=== PATIENT | male | born 1955 | race Caucasian/White ===

== ENCOUNTER → 2017-04-05 | Day surgery (SDC) | payer OTHER ==
[~2017-04-05] MED LIST: ALPR.5 PO; BUPIVACAINE HCL PF 0.75% 30 ML VIAL ONE; LEXA10TA PO; LIPI20TA PO; MONT10TA2 PO; MULTTAB67 PO; PROPOFOL 200 MG/20 ML AMP IV ONE; TRIAMCINOLONE ACETONIDE 40 MG/ML VIAL I-ARTICULR ONE; TRIL135C PO
--- NOTE | 2017-04-07 08:02 | M6 ---
cc: ALYSSIA GARCIA M.D. DATE: 04/05/2017 DATE OF : 1955 PROCEDURE Fluoroscopically guided injection bilateral lumbar facet joints (bilateral L3-4, L4-5 and L5-S1 facet joints). History and physical was completed and signed. Consent was signed. Procedure site was marked. Medications were listed and reconciled. Pain score was recorded. Allergies were noted. Time out was taken. Fluoroscopy time was recorded where applicable. Sedation was administered or directed by Dr. Garcia. The patient was given oxygen. The patient was monitored by a registered nurse. Total procedure time was greater than 15 minutes. PROCEDURE NOTE: IV was started, blood pressure cuff, pulse oximeter and EKG were applied. The patient was placed in the prone position on a Delfin table sedated with small amounts of propofol titrated to effect. Vital signs were monitored and remained stable throughout the procedure. The lumbar area was prepped with alcohol and 10% Betadine solution and draped with sterile drapes. Fluoroscopy was used in a Ganesh dog view to clearly visualize the bilateral lumbar facet joints at L3-4, L4-5 and L5-S1. Separate sterile 3-1/2 inch 25-gauge spinal needles were advanced into these joints under fluoroscopic guidance. There was negative aspiration for blood or any other type of fluid and at each location the patient was given 1 mL of Marcaine 0.75% which contained 10 mg of Kenalog. Following the procedure the patient was taken to the recovery room with stable vital signs neurologically intact. He will be evaluated immediately and with followup to determine if he has a subjective decrease in his usual pain and a corresponding objective increase his functional capabilities. WMD LINDA Foss/MARY /9:17 AM /8:03 AM
== END | disposition home or self-care (01) ==
LOC: PHSDC 07:29
PROVIDERS: ATTEND Pain Medicine Interventional Pain Medicine
DX: M54.5 Low back pain (principal)
CPT/HCPCS: 64493; 64494; 64495; 99152; J3301

== ENCOUNTER → 2017-04-26 | Day surgery (SDC) | payer OTHER ==
[~2017-04-26] MED LIST changes: +BUPIVACAINE HCL PF 0.5% 30 ML VIAL ONE; -BUPIVACAINE HCL PF 0.75% 30 ML VIAL ONE; +HYDR-3583 PO; +IBUP400T20 PO; +methylPREDNISolone ACETATE 40 MG/ML VIAL I-ARTICULR ONE
--- NOTE | 2017-04-30 23:07 | M6 ---
cc: ALYSSIA GARCIA M.D. DATE: 04/26/2017 DATE OF : 1955 PROCEDURE Fluoroscopically guided injection right sacroiliac joint. History and physical was completed and signed. Consent was signed. Procedure site was marked. Medications were listed and reconciled. Pain score was recorded. Allergies were noted. Time out was taken. Fluoroscopy time was recorded where applicable. Sedation was administered or directed by Dr. Garcia. The patient was given oxygen. The patient was monitored by a registered nurse. Total procedure time was greater than 15 minutes. PROCEDURE NOTE: IV was started, blood pressure cuff, pulse oximeter and EKG were applied. The patient was placed in the prone position on a Delfin table sedated with small amounts of propofol titrated to effect. Vital signs were monitored and remained stable throughout the procedure. Sacral area was prepped with alcohol and 10% Betadine solution and draped with sterile drapes. Fluoroscopy was used shooting from medial to lateral to clearly visualize the posterior joint line of the right sacroiliac joint. A sterile 5-inch 22-gauge spinal needle was advanced into the joint under fluoroscopic guidance. There was negative aspiration for blood or any other type of fluid and the patient was given 2 mL of 0.5% Marcaine 20 mg of Depo-Medrol, 20 mg of Kenalog. Following the procedure the patient was taken to the recovery room with stable vital signs neurologically intact. He will be evaluated immediately and with followup to determine if he has a subjective decrease in his usual pain and a corresponding objective increase his functional capabilities. W. MD LINDA Abdul/MARY /9:25 AM /11:09 PM
== END | disposition home or self-care (01) ==
LOC: PHSDC 08:26
PROVIDERS: ATTEND Pain Medicine Interventional Pain Medicine
DX: M54.5 Low back pain (principal)
CPT/HCPCS: 27096; 99152; J1030; J3301; G0260

== ENCOUNTER → 2017-05-16 | Day surgery (SDC) | payer OTHER ==
[~2017-05-16] MED LIST changes: -BUPIVACAINE HCL PF 0.5% 30 ML VIAL ONE; +BUPIVACAINE HCL PF 0.75% 30 ML VIAL ONE; +DIOV80TA4 PO; +IOHEXOL 180 MG/ML 20 ML VIAL (for RAD DIAG) EPIDURAL ONE; +LIDOCAINE HCL 1% 30 ML VIAL INFIL ONE; -TRIAMCINOLONE ACETONIDE 40 MG/ML VIAL I-ARTICULR ONE; +TRIAMCINOLONE ACETONIDE 40 MG/ML VIAL I-SYNOVIAL ONE; -methylPREDNISolone ACETATE 40 MG/ML VIAL I-ARTICULR ONE
--- NOTE | 2017-05-20 09:14 | M6 ---
cc: ALYSSIA GARCIA M.D. DATE: 05/16/2017 DATE OF : 1955 PROCEDURE Fluoroscopically guided L4-5 intradiscal injection. PROCEDURE NOTE History and physical was completed and signed. Consent was signed. Procedure site was marked. Medications were listed and reconciled. Pain score was recorded. Allergies were noted. Timeout was taken. Fluoroscopy time was recorded where applicable. Sedation was administered or directed by Dr. Garcia. The patient was given oxygen. The patient was monitored by a registered nurse. Total procedure time was greater than 15 minutes. An IV was started, blood pressure cuff, pulse oximeter and EKG were applied. The patient was placed in the prone position on a Delfin table, sedated with small amounts of propofol titrated to effect. Vital signs were monitored and remained stable throughout the procedure. The lumbar area was prepped with alcohol and 10% Betadine solution, draped with sterile drapes. Fluoroscopy was used in both the AP and lateral projection to clearly visualize the L4-5 disc. The C-arm was rotated in an approximately 45 degree oblique angle until the superior articular process of L5 was at the midpoint of the L4-5 disc. Then strict aseptic technique was used, gloves were used, cap and mask were worn. The skin was infiltrated with 1% Xylocaine using a 27-gauge needle. Then a 16-gauge introducer needle was placed through the skin and a 5-inch, 22-gauge spinal needle was advanced through the introducer needle just underneath the superior articular process of L5 into the disc. The needle was advanced to the midportion of the disc. Omnipaque dye was injected and seen to fill the nucleus pulposus. At this point the patient was given 1 mL of Marcaine 0.75% which contained 10 mg of Kenalog. Following the procedure the patient was taken to the recovery room with stable vital signs, neurologically intact. W. MD SUSHMA AbdulM/DEVIN /11:22 AM /9:08 AM
== END | disposition home or self-care (01) ==
LOC: PHSDC 09:10
PROVIDERS: ATTEND Pain Medicine Interventional Pain Medicine
DX: M54.5 Low back pain (principal)
CPT/HCPCS: 62290; 99152; J3301; Q9965

== ENCOUNTER → 2017-05-24 | Day surgery (SDC) | payer OTHER ==
[~2017-05-24] MED LIST changes: +ALEV220T14 PO; +BUPIVACAINE HCL PF 0.5% 30 ML VIAL ONE; -BUPIVACAINE HCL PF 0.75% 30 ML VIAL ONE; -IOHEXOL 180 MG/ML 20 ML VIAL (for RAD DIAG) EPIDURAL ONE; -LIDOCAINE HCL 1% 30 ML VIAL INFIL ONE; +TRIAMCINOLONE ACETONIDE 40 MG/ML VIAL I-ARTICULR ONE; -TRIAMCINOLONE ACETONIDE 40 MG/ML VIAL I-SYNOVIAL ONE; +methylPREDNISolone ACETATE 40 MG/ML VIAL I-ARTICULR ONE
--- NOTE | 2017-05-26 11:52 | M6 ---
cc: ALYSSIA GARCIA M.D. DATE: 05/24/2017 DATE OF : 1955. PROCEDURE Fluoroscopic guided injection bilateral lumbar facet joints. History and physical was completed and signed. Consent was signed. Procedure site was marked. Medications were listed and reconciled. Pain score was recorded. Allergies were noted. Time out was taken. Fluoroscopy time was recorded where applicable. Sedation was administered or directed by Dr. Garcia. The patient was given oxygen. The patient was monitored by a registered nurse. Total procedure time was greater than 15 minutes. PROCEDURE NOTE: IV was started, blood pressure cuff, pulse oximeter and EKG were applied. The patient was placed in the prone position on a Delfin table sedated with small amounts of propofol titrated to effect. Vital signs were monitored and remained stable throughout the procedure. The lumbar area was prepped with alcohol and 10% Betadine solution and draped with sterile drapes. Fluoroscopy was used shooting from medial to lateral to clearly visualize the posterior joint line of the bilateral sacroiliac joints. Separate sterile 5-inch 22-gauge spinal needles were advanced into these joints under fluoroscopic guidance. There was negative aspiration for blood or any other type of fluid. At each location the patient was given 2 mL of 0.5% Marcaine 20 mg of Depo-Medrol and 20 mg of Kenalog. Following this the patient was taken to the recovery room with stable vital signs neurologically intact. W. MD LINDA Abdul/MARY /8:55 AM /7:49 AM
== END | disposition home or self-care (01) ==
LOC: PHSDC 07:24
PROVIDERS: ATTEND Pain Medicine Interventional Pain Medicine
DX: M51.36 Other intervertebral disc degeneration, lumbar region (principal); M54.5 Low back pain
CPT/HCPCS: 27096; 99152; J1030; J3301; G0260

== ENCOUNTER → 2017-07-08 | Day surgery (SDC) | payer OTHER ==
[~2017-07-08] MED LIST changes: -BUPIVACAINE HCL PF 0.5% 30 ML VIAL ONE; +LIDOCAINE HCL 1% PF 30 ML VIAL INFIL ONE; +MEPERIDINE HCL 50 MG/ML VIAL IV ONE; +MIDAZOLAM HCL 2 MG/2 ML VIAL IV ONE; +SODIUM CHLORIDE 0.9% 10 ML VIAL ONE; -TRIAMCINOLONE ACETONIDE 40 MG/ML VIAL I-ARTICULR ONE
--- NOTE | 2017-07-08 11:15 | M6 ---
cc: ALYSSIA REEDER M.D. DATE: 07/08/2017 1955 PROCEDURE Radiofrequency ablation of L5-S1, S1, S2 and S3 on the right-hand side. IV was started, blood pressure cuff, pulse oximeter and EKG were applied. The patient was placed in the prone position on a Delfin table, sedated with small amounts of propofol titrated to effect. Vital signs were monitored and remained stable throughout the procedure. The sacral area was prepped with alcohol and 10% Betadine solution, draped with sterile drapes. Fluoroscopy was used to visualize the right sacral ala, S1, S2 and S3 neural foramen. The skin was infiltrated with 1% Xylocaine using a 27 gauge needle, then an insulated cooled radiofrequency needle was advanced just lateral to each one of the neural foramen and three thermal lesions were made just lateral to each neural foramen at the 02:30, 4 o'clock and 05:30 positions. This was followed by a small amount of Depo-Medrol. Then a single lesion was made at the right sacral ala. Following the procedure the patient was taken to the recovery room with stable vital signs. W. MD LINDA Abdul/LAURA /9:14 AM /11:05 AM
== END | disposition home or self-care (01) ==
LOC: PHSDC 06:34
PROVIDERS: ATTEND Pain Medicine Interventional Pain Medicine
DX: M54.5 Low back pain (principal); I10 Essential (primary) hypertension; E78.00 Pure hypercholesterolemia, unspecified
CPT/HCPCS: 64635; 64640; 99152; 99153; J1030; J2175; J2250

== ENCOUNTER → 2017-08-14 | Day surgery (SDC) | payer OTHER ==
[~2017-08-14] MED LIST changes: +BUPIVACAINE HCL PF 0.75% 30 ML VIAL ONE; +IBUP1TAB5 PO; -IBUP400T20 PO; +IOHEXOL 180 MG/ML 20 ML VIAL (for RAD DIAG) EPIDURAL ONE; -LIDOCAINE HCL 1% PF 30 ML VIAL INFIL ONE; +MAPA325T PO; -MEPERIDINE HCL 50 MG/ML VIAL IV ONE; -MIDAZOLAM HCL 2 MG/2 ML VIAL IV ONE; -SODIUM CHLORIDE 0.9% 10 ML VIAL ONE; +TRIAMCINOLONE ACETONIDE 40 MG/ML VIAL NERV BLOCK ONE; -methylPREDNISolone ACETATE 40 MG/ML VIAL I-ARTICULR ONE
--- NOTE | 2017-08-14 11:19 | M6 ---
cc: ALYSSIA GARCIA M.D. DATE: 08/14/2017 DATE OF : 1955 PROCEDURE Fluoroscopically guided L4-5 disc injection. PROCEDURE NOTE History and physical was completed and signed. Consent was signed. Procedure site was marked. Medications were listed and reconciled. Pain score was recorded. Allergies were noted. Timeout was taken. Fluoroscopy time was recorded where applicable. Sedation was administered or directed by Dr. Garcia. The patient was given oxygen. The patient was monitored by a registered nurse. Total procedure time was greater than 15 minutes. An IV was started, blood pressure cuff, pulse oximeter and EKG were applied. The patient was placed in the prone position on a Delfin table, sedated with small amounts of propofol titrated to effect. Vital signs were monitored and remained stable throughout the procedure. The lumbar area was prepped with alcohol and 10% Betadine solution, draped with sterile drapes. A strict aseptic technique was used including wearing a hat, mask and gloves. The patient was draped with sterile drapes. Fluoroscopy was used in an oblique angle to clearly visualize the L4-5 disc with the superior articular process of L5 at the midpoint of the disc. The skin was infiltrated with 1% Xylocaine using a 27-gauge needle. Then a 16-gauge introducer needle was placed through the skin parallel to the x-ray beam. Then a 5-inch, 22-gauge spinal needle was placed through the introducer needle and advanced just under the superior articular process of L5 into the middle portion of the L4-5 disc. Omnipaque dye was injected and seen to spread in a nucleus. At this point the patient was given 1 mL of Marcaine 0.75% with 20 mg of Kenalog. Following this the patient was taken to the recovery room with stable vital signs, neurologically intact. He will be evaluated immediately and with follow-up to determine if he has a subjective decrease in his usual pain and a corresponding objective increase in his functional capabilities. For example, Mr. Vaz is having severe back pain which does radiate into the posterior aspect of his thigh whenever he coughs, sneezes or Valsalva's. We are looking to see if there is a significant decrease in this pain. W. MD LINDA Abdul/DEVIN /11:04 AM /11:18 AM
== END | disposition home or self-care (01) ==
LOC: PHSDC 09:03
PROVIDERS: ATTEND Pain Medicine Interventional Pain Medicine
DX: M54.5 Low back pain (principal)
CPT/HCPCS: 62290; 99152; J3301; Q9965